=== PATIENT | female | born 1975 | race Caucasian/White ===

== ENCOUNTER 2021-03-31 09:01 | Emergency (ER) | payer BC, SELFPAY ==
[2021-03-31 09:10] VITALS: BP 129/86; PULSE 80; RESP 16; TEMP 36.9; O2SAT 100
--- NOTE | 2021-03-31 09:49 | ED.URI ---
HPI - URI/Sore Throat General Chief Complaint: Upper Respiratory Infection Stated Complaint: Headache, runny nose. Source: patient Mode of arrival: ambulatory Limitations: no limitations History of Present Illness HPI Narrative: 45-year-old female presents to urgent care with complaints of taste in her mouth, runny nose, sore throat and headache for the past 3 days. Patient is COVID vaccinated. Patient has been taking [id number] Tylenol and cold medications with minimal relief. Patient's son currently is similar symptoms. Patient denies recent travel. Patient does smoke. Patient denies shortness of breath, wheezing, nausea, vomiting or diarrhea MD elicited complaint: rhinorrhea Onset (ago): day(s) (3) Able to tolerate fluids by mouth: Yes Associated symptoms: headache and rhinorrhea Treatments prior to arrival: cold medicine Related Data Home Medications Medication Instructions Recorded Confirmed bupropion HCl 100 mg PO DAILY 03/31/21 03/31/21 nicotine 7 mg TRANSDERMAL DAILY 03/31/21 03/31/21 nicotine 14 mg TRANSDERMAL DAILY 03/31/21 03/31/21 phentermine 37.5 mg PO DAILY 03/31/21 03/31/21 venlafaxine 75 mg PO DAILY 03/31/21 03/31/21 venlafaxine 150 mg PO DAILY 03/31/21 03/31/21 Allergies Allergy/AdvReac Type Severity Reaction Status Date / Time Penicillins Allergy Hives Verified 03/31/21 09:58 Review of Systems Constitutional: Constitutional: Denies chills, Denies fever(s) and Denies weakness ENT: Denies dysphagia, Denies dizziness, Denies epistaxis and Reports sore throat Cardiovascular: Cardiovascular: Denies chest pain and Denies radiating jaw, neck or arm pain Respiratory: Respiratory: Denies chest congestion, Reports cough, Denies dyspnea and Denies wheezing Gastrointestinal: Gastrointestinal: Denies abdominal pain, Denies diarrhea, Denies nausea and Denies vomiting Integumentary/Breasts: Skin/Breast: Denies rash Neurologic: Reports headache(s) [facility] Surgical History Surgical History (Updated 03/31/21 @ 09:53 by Erika Santana APRN) Hx of cholecystectomy Previous section Social History Social History (Updated 03/31/21 @ 09:53 by Erika Santnaa APRN) Smoking status: Current every day smoker Comments At time of signature, I agree with nursing past medical, surgical, social and family history. There is no relevant family history pertinent to the presenting complaint. Exam Const: General: healthy appearing and no acute distress Orientation/consciousness: patient oriented x3 HENMT: Head: normal to inspection Ears: external ears normal and TM's normal bilaterally General nose exam: Normal nares present Face and sinus: normal facial exam Mouth: Yes Normal oral and palatal mucosa present and Yes moist mucous membranes Throat: uvula midline Eyes: Pupils: Equal, round and reactive pupils present Neck: Neck: normal visual inspection Resp: Effort & Inspection: normal respiratory effort Auscultation: clear to auscultation bilaterally Cardio: Rate: regular rate Rhythm: regular rhythm Skin: General skin exam: normal color Rashes: no rashes Neuro: General: patient oriented x3 and moves all extremities Extrem: General: normal to inspection Psych: Affect: normal affect Attitude: cooperative Course Course Level of Care: Express Care Visit Vital Signs Vital signs: Vital Signs Temperature 36.9 C 03/31/21 09:10 Pulse Rate 80 03/31/21 09:10 Respiratory Rate 16 03/31/21 09:10 Blood Pressure 129/86 03/31/21 09:10 Pulse Oximetry 100 03/31/21 09:10 Temperature 36.9 C 03/31/21 09:10 Pulse Rate 80 03/31/21 09:10 Respiratory Rate 16 03/31/21 09:10 Blood Pressure 129/86 03/31/21 09:10 Pulse Oximetry 100 03/31/21 09:10 MDM - URI/Sore Throat MDM Narrative Medical decision making narrative: Negative COVID results discussed with patient. Patient agrees to continue losf-kby-sjflnem cold medications as needed. Patient agrees to pr
== END 2021-03-31 10:22 | disposition home or self-care (01) ==
PROVIDERS: Emergency Provider Nurse Practitioner Family; PCP Nurse Practitioner Family
DX: B34.9 Viral infection, unspecified (principal); F17.200 Nicotine dependence, unspecified, uncomplicated
CPT/HCPCS: 87426; 99213; C9803; G0463

== ENCOUNTER → 2021-05-26 18:07 | Outpatient (CLI) | payer OTHER, MEDICAID, SELFPAY ==
--- NOTE | ~2021-05-26 | XR_ITS ---
EXAMINATION: XR thoracic spine 2V DATE: 05/26/2021 18:52 INDICATION: Thoracic spine pain TECHNIQUE: One AP, lateral and lateral swimmer's views of the thoracic spine were obtained. COMPARISON: None. FINDINGS: Mild S-shaped scoliosis of the thoracic spine with 11 degree levocurvature between T2 and T5 and 90 d egree dextrocurvature between T5 and T12. Minimal anterior wedging of T5 and T6. Mild disc height los s at multiple levels in the mid thoracic spine. Visualized portions of the lungs are clear. Cholecyst ectomy clips in right upper quadrant. Suture line in the left epigastric region suggesting possible g astric bypass procedure. Correlate with surgical history. IMPRESSION: 1. Mild S-shaped scoliosis of the thoracic spine with mild spondylosis. 2. Age-indeterminate minimal anterior wedging at T5 and T6. Reviewed, dictated and finalized at location A. DARY APPRENTICE
--- NOTE | ~2021-05-26 | XR_ITS ---
EXAMINATION:XR_[id number]_CR DATE: 05/26/2021 18:50 INDICATION: Neck pain TECHNIQUE: AP, lateral, lateral swimmers and odontoid views of the cervical spine are provided. COMPARISON: None FINDINGS: 9 degree lower cervical dextrocurvature. Sagittal alignment is normal. Odontoid is intact. Normal at lantoaxial interval. Moderate disc height loss and moderate bilateral uncovertebral osteoarthritis at C4-C5 and C5-C6. Mild disc height loss at C6-C7. Minimal to mild multilevel cervical facet osteoarth ritis most prominent at C7-T1. Prevertebral soft tissues are normal. IMPRESSION: 1. Mild cervical dextrocurvature with mild to moderate spondylosis. Reviewed, dictated and finalized at location A. [employer]
== END ==
PROVIDERS: PCP Nurse Practitioner Family; Visit Provider Nurse Practitioner Family
DX: M47.813 Spondylosis without myelopathy or radiculopathy, cervicothoracic region (principal); M41.9 Scoliosis, unspecified
CPT/HCPCS: 72040; 72070

== ENCOUNTER 2022-02-15 08:03 | Emergency (ER) | payer OTHER, MEDICAID, SELFPAY ==
[2022-02-15 08:13] VITALS: BP 149/91; PULSE 92; RESP 20; TEMP 37.4; O2SAT 100
--- NOTE | 2022-02-15 08:17 | ED.URI ---
HPI - URI/Sore Throat General Chief Complaint: Upper Respiratory Infection Stated Complaint: Congestion/Chest Congestion Time Seen by Provider: 02/15/22 08:17 Source: patient and RN notes reviewed Mode of arrival: ambulatory Limitations: no limitations History of Present Illness HPI Narrative: 46-year-old female presenting for complaint of headache, body aches, sinus pressure/congestion, cough, fever/chills. Onset yesterday. Taking otc meds without significant relief. 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 Denies known sick contacts. Denies shortness of breath, wheezing, nausea, vomiting, diarrhea. MD elicited complaint: cough Related Data Home Medications Medication Instructions Recorded Confirmed bupropion HCl 100 mg tablet,12 hr 100 mg PO DAILY 03/31/21 03/31/21 sustained-release nicotine 14 mg/24 hr daily 14 mg transdermal DAILY 03/31/21 03/31/21 transdermal patch nicotine 7 mg/24 hr daily 7 mg transdermal DAILY 03/31/21 03/31/21 transdermal patch phentermine 37.5 mg tablet 37.5 mg PO DAILY 03/31/21 03/31/21 venlafaxine 150 mg 150 mg PO DAILY 03/31/21 03/31/21 capsule,extended release 24 hr venlafaxine 75 mg tablet 75 mg PO DAILY 03/31/21 03/31/21 Allergies Allergy/AdvReac Type Severity Reaction Status Date / Time Penicillins Allergy Hives Verified 02/15/22 08:18 Review of Systems Review of Systems: ROS per HPI [facility] Surgical History Surgical History Hx of cholecystectomy Previous section Social History Social History Smoking status: Current every day smoker Exam Narrative: GENERAL: Ill-appearing, nontoxic EYES: PERRLA, conjunctivae clear ENT: Mucous membranes moist. TMs pearly goode with dull light reflex bilaterally; no tragal tenderness. Oropharynx erythematous without lesions or exudate, no drooling, no hoarseness, no trismus, uvula midline. CHEST: Clear to auscultation, breath sounds equal. No wheezing, rhonchi, rales, or stridor. No respiratory distress, speaks in full sentences. HEART: Regular rate and rhythm. No murmur heard. SKIN: Warm, dry, no rash. NEURO: Alert and oriented x3. PSYCH: Normal mood and affect Course Course Emergency Course: Patient is aware of diagnosis, understands and agrees to treatment plan. Anticipatory guidance given. Patient agrees to follow-up as directed and is aware of reasons to seek care at the emergency department. Portions of this record may have been created with voice recognition software Level of Care: Express Care Visit Vital Signs Vital signs: Vital Signs Temperature 99.4 F 02/15/22 08:13 Pulse Rate 92 02/15/22 08:13 Respiratory Rate 20 02/15/22 08:13 Blood Pressure 149/91 H 02/15/22 08:13 Pulse Oximetry 100 02/15/22 08:13 Oxygen Delivery Room Air 02/15/22 08:13 Temperature 99.4 F 02/15/22 08:13 Pulse Rate 92 02/15/22 08:13 Respiratory Rate 20 02/15/22 08:13 Blood Pressure 149/91 H 02/15/22 08:13 Pulse Oximetry 100 02/15/22 08:13 Oxygen Delivery Room Air 02/15/22 08:13 reviewed MDM - URI/Sore Throat MDM Narrative Medical decision making narrative: Pt agreeable to covid testing. Advised supportive measures and signs/symptoms to go to the ER. Pt is appropriate for outpt treatment and f/u. Differential Diagnosis Differential diagnosis: Likely upper respiratory infection, sinusitis and viral infection Discharge Plan Discharge Clinical Impression: COVID-19 Patient Disposition: Home, Self-Care Condition: Stable Instructions: COVID-19 (Coronavirus Disease 2019) (ED) Additional Instructions: Your rapid COVID test was positive today. The following recommendations have been made by the CDC and local Health Departments, regarding COVID-19: -Those individuals with mild cases of COVID-19 can generally be discontinued from i
== END 2022-02-15 08:35 | disposition home or self-care (01) ==
PROVIDERS: Emergency Provider Nurse Practitioner Family; PCP Nurse Practitioner Family
DX: U07.1 COVID-19 (principal); F17.290 Nicotine dependence, other tobacco product, uncomplicated
CPT/HCPCS: 87426; 99213; C9803; G0463

== ENCOUNTER 2023-03-07 08:51 | Emergency (ER) | payer OTHER, SELFPAY ==
[2023-03-07 09:00] VITALS: BP 120/86; PULSE 85; RESP 14; TEMP 36.8; O2SAT 96
--- NOTE | 2023-03-07 09:52 | ED.URI ---
HPI - URI/Sore Throat General Chief Complaint: Upper Respiratory Infection Stated Complaint: throat/headache/aches Time Seen by Provider: 03/07/23 09:48 Source: patient and RN notes reviewed Mode of arrival: ambulatory Limitations: no limitations History of Present Illness HPI Narrative: 47-year-old female presents with concern for fever, body aches, nasal drainage, sore throat. Reports exposure to COVID. She denies taking oede-qrg-tqzyotf medications. MD elicited complaint: sore throat Related Data Home Medications Medication Instructions Recorded Confirmed cyclobenzaprine 10 mg tablet mg 03/07/23 dextromethorphan IR 45 tablet PO 03/07/23 mg-bupropion ER 105 mg biphasic tablet (Auvelity) Allergies Allergy/AdvReac Type Severity Reaction Status Date / Time Penicillins Allergy Hives Verified 03/07/23 09:36 Review of Systems Review of Systems: CONSTITUTIONAL: Reports malaise, fever. EYES: Denies visual changes, redness, or discharge. ENT: Reports rhinorrhea, congestion, sore throat. CARDIOVASCULAR: Denies chest pain, palpitations, or edema. RESPIRATORY: Denies cough. Denies dyspnea. GASTROINTESTINAL: Denies abdominal pain, nausea, vomiting, diarrhea SKIN: Denies rash or itching. MUSCULOSKELETAL: Reports myalgia. NEUROLOGIC: Denies headache. All systems reviewed & are unremarkable except as noted in HPI and below PMFSH Surgical History Surgical History Hx of cholecystectomy Previous section Social History Social History Smoking status: Current every day smoker Comments At time of signature, agree with nursing past medical, surgical, social and family history. There is no relevant family history pertinent to the presenting complaint Exam Narrative: GENERAL: Well-appearing, well-nourished, and in no acute distress. HEAD: Normocephalic EYES: PERRLA, conjunctivae clear ENT: Nares clear, turbinates edematous and erythematous, clear discharge. Mucous membranes moist. TM pearly goode with dull light reflex bilaterally; no tragal tenderness. Oropharynx not erythematous without lesions. Tonsils not enlarged and without exudate, no drooling, no hoarseness, no trismus, uvula midline. NECK: Supple. No lymphadenopathy CHEST: Clear to auscultation, breath sounds equal. No wheezing, rhonchi, rales, or stridor. No respiratory distress, speaks in full sentences. HEART: Regular rate and rhythm. No murmur heard. SKIN: Warm, dry, no rash. NEURO: Alert and oriented x3. PSYCH: Normal mood and affect Course Course Emergency Course: Offered patient strep test, which she is not interested in at this time Patient is aware of diagnosis, understands and agrees to treatment plan. Anticipatory guidance given. Patient agrees to follow-up as directed and is aware of reasons to seek care at the emergency department. Portions of this record may have been created with voice recognition software Level of Care: Express Care Visit Vital Signs Vital signs: Vital Signs Temperature 98.3 F 03/07/23 09:00 Pulse Rate 85 03/07/23 09:00 Respiratory Rate 14 03/07/23 09:00 Blood Pressure 120/86 03/07/23 09:00 Pulse Oximetry 96 03/07/23 09:00 Oxygen Delivery Room Air 03/07/23 09:00 Temperature 98.3 F 03/07/23 09:00 Pulse Rate 85 03/07/23 09:00 Respiratory Rate 14 03/07/23 09:00 Blood Pressure 120/86 03/07/23 09:00 Pulse Oximetry 96 03/07/23 09:00 Oxygen Delivery Room Air 03/07/23 09:00 Reviewed. MDM - URI/Sore Throat MDM Narrative Medical decision making narrative: Differential diagnosis considered: Galindo virus, strep pharyngitis, allergic rhinitis, upper respiratory tract infection, sinusitis, rhinosinusitis, nasopharyngitis. viral pharyngitis, otitis media, otitis externa, pneumonia, bronchitis, viral cough syndrome, viral syndrome, and influenza. Exam
== END 2023-03-07 10:00 | disposition home or self-care (01) ==
PROVIDERS: Emergency Provider Nurse Practitioner; PCP Nurse Practitioner Family
DX: J06.9 Acute upper respiratory infection, unspecified (principal); Z20.822 Contact with and (suspected) exposure to COVID-19; F17.200 Nicotine dependence, unspecified, uncomplicated
CPT/HCPCS: 87426; 87804; 99213; C9803; G0463

== ENCOUNTER 2023-11-13 13:00 | Emergency (ER) | payer OTHER, SELFPAY ==
[2023-11-13 13:13] VITALS: BP 139/87; PULSE 84; RESP 20; TEMP 37.2; O2SAT 99
[2023-11-13 13:17] VITALS: BP 139/87; PULSE 84; RESP 20; TEMP 37.2; O2SAT 99
[2023-11-13] MEDS: KETOROLAC (*BKC) 60 MG/2 ML VIAL IM (13:26)
--- NOTE | 2023-11-13 13:44 | ED.HA ---
HPI - Headache General Chief Complaint: Headache Stated Complaint: Headache History of Present Illness HPI Narrative: Patient is a 47-year-old female, past medical history significant for migraine headaches, presents to [facility] with 3 day history of migraine, described as reminiscent of previous migraine headaches with associated photophobia. She states she took baclofen, Compazine and Benadryl yesterday in attempt to alleviate her headache and was able to sleep however she woke this morning with persistent headache symptoms. Her headache is diffuse across the frontal region it is also noted in the occipital region. She has not repeated any medication today. She does have recollection of previous migraines that required several days of baclofen but that has not occurred for some time. She denies traumatic injuries or falls, she has not hit her head. She denies any additional associated symptoms or modifying factors. Related Data Home Medications Medication Instructions Recorded Confirmed cyclobenzaprine 10 mg tablet 10 mg PO TID PRN MUSCLE SPASMS 03/07/23 11/13/23 dextromethorphan IR 45 1 tablet PO BID 03/07/23 11/13/23 mg-bupropion ER 105 mg biphasic tablet (Auvelity) Allergies Allergy/AdvReac Type Severity Reaction Status Date / Time Penicillins Allergy Intermediate Hives Verified 11/13/23 13:13 Review of Systems Neurologic: Comments: It refer to [facility] Surgical History Surgical History Hx of cholecystectomy Previous section Social History Social History Smoking status: Current every day smoker Exam Const: General: healthy appearing and no acute distress Nutritional Appearance: well nourished Orientation/consciousness: patient oriented x3 HENMT: Head: normal to inspection Ears: external ears normal and TM's normal bilaterally Face and sinus: normal facial exam and sinuses nontender Mouth: Yes Normal oral and palatal mucosa present and Yes lip normal Throat: posterior oropharynx normal and uvula midline Eyes: Conjunctivae: conjunctivae normal Pupils: Equal, round and reactive pupils present EOM: EOMs intact bilaterally Direct Ophthalmoscopy: no photophobia Neck: Neck: normal visual inspection, no lymphadenopathy and no meningeal signs Chest: Chest palpation & inspection: normal inspection of the chest Resp: Effort & Inspection: normal respiratory effort Auscultation: clear to auscultation bilaterally Cardio: Rate: regular rate Rhythm: regular rhythm Back/Spine/Pelvis: Back: no CVA tenderness Skin: General skin exam: normal color Rashes: no rashes Wounds: no wounds Neuro: General: patient oriented x3, moves all extremities, no meningeal signs, no focal motor deficits and CN's II-XI intact bilaterally Cranial nerves: Yes Nystagmus not present Speech: normal speech Gait exam (Neuro): Normal gait present Extrem: General: normal to inspection, no clubbing, cyanosis or edema and no pedal edema Course Course Emergency Course: Patient is administered Toradol here. She is feeling some improvement. Patient is advised to continue baclofen as directed. follow-up with PCP stressed for migraine follow-up in the event she requires neurology referral. Patient is agreeable with plan. She will go to the ER if her symptoms worsen in any way. Level of Care: Express Care Visit ([id number]) Vital Signs Vital signs: Vital Signs Temperature 37.2 C 11/13/23 13:13 Pulse Rate 84 11/13/23 13:13 Respiratory Rate 20 11/13/23 13:13 Blood Pressure 139/87 11/13/23 13:13 Pulse Oximetry 99 11/13/23 13:13 Oxygen Delivery Room Air 11/13/23 13:13 Temperature 37.2 C 11/13/23 13:17 Pulse Rate 84 11/13/23 13:17 Respiratory Rate 20 11/13/23 13:17 Blood Pressure 139/87 11/13/23 13:17 Pulse Oximetry 99 11/13/23 13:17 Oxygen Delivery Room A
== END 2023-11-13 14:06 | disposition home or self-care (01) ==
PROVIDERS: Emergency Provider Nurse Practitioner Family; PCP Nurse Practitioner Family
DX: G44.209 Tension-type headache, unspecified, not intractable (principal); F17.200 Nicotine dependence, unspecified, uncomplicated
CPT/HCPCS: 96372; 99213; G0463; J1885

== ENCOUNTER 2024-04-01 12:39 | Emergency (ER) | payer OTHER, SELFPAY ==
[2024-04-01 12:47] VITALS: BP 131/71; PULSE 100; RESP 18; TEMP 37.4; O2SAT 99
--- NOTE | 2024-04-01 12:51 | ED_ITS ---
HPI - URI/Sore Throat General Chief Complaint: Upper Respiratory Infection Stated Complaint: Ear Pain,Sore Throat,Cough,Body Aches Time Seen by Provider: 04/01/24 12:41 Source: patient and RN notes reviewed Mode of arrival: ambulatory Limitations: no limitations History of Present Illness HPI Narrative: 48-year-old female presents with concern for ear pain, sore throat, cough, body aches that started today. Reports 2 days ago she had diarrhea. She reports she had a fever this morning. She reports body aches. She has been taking DayQuil elicited complaint: cough Related Data Home Medications ?Medication ?Instructions ?Recorded ?Confirmed ?Last Taken ?Type cyclobenzaprine 10 mg tablet 10 mg PO TID PRN MUSCLE SPASMS 03/07/23 11/13/23 Unknown History dextromethorphan IR 45 1 tablet PO BID 03/07/23 11/13/23 Unknown History mg-bupropion ER 105 mg biphasic tablet (Auvelity) Allergies Allergy/AdvReac Type Severity Reaction Status Date / Time Penicillins Allergy Intermediate Hives Verified 11/13/23 13:13 Review of Systems Review of Systems: CONSTITUTIONAL: Denies malaise, chills, sweats, or fever. EYES: Denies visual changes, redness, or discharge. ENT: Reports rhinorrhea, congestion, sinus pain, otalgia and sore throat. CARDIOVASCULAR: Denies chest pain, palpitations, or edema. RESPIRATORY: Reports cough. Denies dyspnea. GASTROINTESTINAL: Denies abdominal pain, nausea, vomiting, diarrhea SKIN: Denies rash or itching. MUSCULOSKELETAL: Denies myalgia. NEUROLOGIC: Denies headache. All systems reviewed & are unremarkable except as noted in HPI and below PMFSH Surgical History Surgical History Hx of cholecystectomy Previous section Social History Social History Smoking status: Current every day smoker Comments At time of signature, agree with nursing past medical, surgical, social and family history. There is no relevant family history pertinent to the presenting complaint Exam Narrative: GENERAL: Nontoxic-appearing, well-nourished, and in no acute distress. HEAD: Normocephalic EYES: PERRLA, conjunctivae clear ENT: Nares clear, turbinates edematous and erythematous, clear discharge. Mucous membranes moist. TM pearly goode with dull light reflex on the right, sharp on the left; no tragal tenderness. Oropharynx not erythematous without lesions. Tonsils not enlarged and without exudate, no drooling, no hoarseness, no trismus, uvula midline. NECK: Supple. No lymphadenopathy CHEST: Clear to auscultation, breath sounds equal. No wheezing, rhonchi, rales, or stridor. No respiratory distress, speaks in full sentences. HEART: Regular rate and rhythm. No murmur heard. SKIN: Warm, dry, no rash. NEURO: Alert and oriented x3. PSYCH: Normal mood and affect Course Course Emergency Course: Patient is aware of diagnosis, understands and agrees to treatment plan. Anticipatory guidance given. Patient agrees to follow-up as directed and is aware of reasons to seek care at the emergency department. Portions of this record may have been created with voice recognition software Level of Care: Express Care Visit Vital Signs Vital signs: Vital Signs Temperature 99.3 F 04/01/24 12:47 Pulse Rate 100 04/01/24 12:47 Respiratory Rate 18 04/01/24 12:47 Blood Pressure 131/71 04/01/24 12:47 Pulse Oximetry 99 04/01/24 12:47 Oxygen Delivery Room Air 04/01/24 12:47 Temperature 99.3 F 04/01/24 12:47 Pulse Rate 100 04/01/24 12:47 Respiratory Rate 18 04/01/24 12:47 Blood Pressure 131/71 04/01/24 12:47 Pulse Oximetry 99 04/01/24 12:47 Oxygen Delivery Room Air 04/01/24 12:47 Reviewed. MDM - URI/Sore Throat MDM Narrative Medical decision making narrative: Differential diagnosis considered: Galindo virus, strep pharyngitis, allergic rhinitis, upper respiratory tract infection, sinusitis, rhinosinusitis, nasopharyngitis. viral pharyngitis, otitis media, otitis externa, pneumonia, bronchitis, viral cough syndrome, viral syndrome, and influenza. Exam findings show no acute concerns or changes; patient is non-toxic appearing and is in no distress. Patient is appropriate for outpatient treatment and follow-up. Lab Data Attestation: I reviewed the patient's lab results. Critical Care Time Critical Care Time Critical Care Time: No Discharge Plan Discharge Clinical Impression: Influenza A Patient Disposition: Home, Self-Care Condition: Stable Additional Instructions: Your influenza A test is positive -Take strict precautions to prevent the spread of your virus. Be diligent about covering your cough (even when you are alone) and washing your hands frequently. -You may contagious until you have been symptom and/or fever free for 24 hours without fever reducing medicine -Alternate Ibuprofen and Tylenol for pain and fever relief (per package dire ctions) -Drink plenty of fluid - drink fluid with electrolytes such as Gatorade or other oral re-hydration solution. Avoid caffeine, which can make dehydration worse. -Get plenty of rest to help your body heal. -Use a cool mist humidifier for chest and nasal congestion. -Eat RAW honey or use cough drops to ease throat discomfort -Do not smoke or expose children to secondhand smoke -Wash your hands frequently. -Please follow-up with your primary care doctor in the next 1-2 days if your symptoms do not improve. -If you have any worsening of symptoms or any other concerns please go to the ED immediately. -Please take medications as prescribed and continue taking your home medications as usual. Patient Language: Egyptian Prescriptions: New pseudoephedrine HCl [12 Hour Decongestant] 120 mg tablet extended release 120 mg PO Q12H PRN (Reason: nasal congestion) Qty: 20 0RF dextromethorphan-guaifenesin [Mucinex DM] 60-1,200 mg tablet extended release 12 hr 1 tablet PO Q12H Qty: 12 0RF No Action cyclobenzaprine 10 mg tablet 10 mg PO TID PRN (Reason: MUSCLE SPASMS) Auvelity 45-105 mg tablet,IR,delayed rel,biphasic 1 tablet PO BID Follow-up/Referrals: Anselmo,Monika Jeffrey APN [Primary Care Provider] - Stand Alone Forms: Work/School Release IP Time of Disposition: 13:30
[2024-04-01 13:18] LABS: EDCOVIDSCREEN Negative (Negative); EDINFLUASCREEN Positive (Negative); EDINFLUBSCREEN Negative (Negative)
== END 2024-04-01 13:33 | disposition home or self-care (01) ==
PROVIDERS: Emergency Provider Nurse Practitioner; PCP Nurse Practitioner Family
DX: J10.1 Influenza due to other identified influenza virus with other respiratory manifestations (principal); Z20.822 Contact with and (suspected) exposure to COVID-19; F17.200 Nicotine dependence, unspecified, uncomplicated
CPT/HCPCS: 87426; 87804; 99213; G0463